=== PATIENT | female | born 1945 | race Hispanic/Latino ===

== ENCOUNTER 2022-09-17 09:20 | Observation (INO) | payer OTHER ==
[2022-09-16 14:45] VITALS: BP 153/70
[2022-09-16 14:47] LABS: INR 0.94 (0.85-1.15); PROTHROMBIN TIME 10.3 SEC (9.6-11.6)
[2022-09-16 14:48] LABS: PARTIAL THROMBOPLASTIN TIME 27.6 SEC (26.3-35.5)
[~2022-09-17] VITALS: Ht 154.9 cm; Wt 97.5 kg
[2022-09-17] VITALS (23 sets, daily range): BP systolic 103–129; BP diastolic 42–57
[~2022-09-17 09:20] MED LIST: AMLO-257 PO; CEFAZOLIN SODIUM 2 GM VIAL IVPB SCH; EMPA25TA PO; HYDR12.54 PO; INSU100V37 SQ; LACTATED RINGERS 1000ML 1,000 ML IV SCH; LOSA100T58 PO; PIOG30TA70 PO; ROSU10TA28 PO; SEMA1PEN3 SQ
[2022-09-17] MEDS ORDERED: 0.9%NACL 1000ML 1,000 ML IV ONE (09:36)
[2022-09-17] MEDS ORDERED: DEXAMETHASONE SOD PHOSPHATE 4 MG/ML 1ML VIAL ONE (14:22)
[2022-09-17] MEDS ORDERED: GLYCOPYRROLATE 1 MG/5 ML SYRINGE ONE (14:22)
[2022-09-17] MEDS ORDERED: LIDOCAINE PF 100MG/5ML (2%) SYRINGE 5ML ONE (14:22)
[2022-09-17] MEDS ORDERED: FENTANYL CITRATE PF 50 MCG/1 ML 2ML VIAL ONE ×2 (14:23→15:24)
[2022-09-17] MEDS ORDERED: ONDANSETRON 4MG INJ ONE (14:23)
[2022-09-17] MEDS ORDERED: PROPOFOL 10 MG/ML 20ML VIAL IV ONE (14:23)
[2022-09-17] MEDS ORDERED: MIDAZOLAM HCL 1 MG/ML 2ML VIAL ONE (14:23)
[2022-09-17] MEDS ORDERED: ROCURONIUM 10MG/1ML SYR 10 MG/ML ML ONE ×2 (14:25→15:24)
[2022-09-17] MEDS ORDERED: SCOPOLAMINE HYDROBROMIDE 1 EACH ADH..PATCH TD ONE (14:28)
[2022-09-17] MEDS ORDERED: EPHEDRINE SULFATE 50 MG/ML AMPULE ONE (14:43)
[2022-09-17] MEDS ORDERED: PHENYLEPHRINE HCL 10 MG/ML 1ML VIAL IV ONE (14:45)
[2022-09-17] MEDS ORDERED: POTASSIUM CHLORIDE 10% ELIXIR 20 MEQ/15 ML UDCUP PO PRN (15:00)
[2022-09-17] MEDS ORDERED: LIDOCAINE HCL-MPF 1% 2ML VIAL IV PRN (15:00)
[2022-09-17] MEDS ORDERED: HYDROCODONE/ACETAMINOPHEN 5/325 MG TAB PO PRN (15:00)
[2022-09-17] MEDS ORDERED: KCL 20 MEQ ERTAB PO PRN (15:00)
[2022-09-17] MEDS ORDERED: HYDROCODONE/ACETAMINOPHEN 10/325 MG TAB PO PRN (15:00)
[2022-09-17] MEDS ORDERED: MORPHINE 4 MG SYG IVP PRN (15:00)
[2022-09-17] MEDS ORDERED: POTASSIUM CHLORIDE 20MEQ/100ML 100 ML IV PRN (15:00)
[2022-09-17] MEDS ORDERED: ONDANSETRON 4MG INJ IVP PRN (15:00)
[2022-09-17] MEDS: ACETAMINOPHEN 1,000 MG/100 ML VIAL IV SCH ×2 (15:00→20:52)
[2022-09-17] MEDS ORDERED: CEFAZOLIN SODIUM 2 GM VIAL IVPB ONE (15:02)
[2022-09-17] MEDS: INSULIN HUMULIN R 100 UNIT/ML 3ML SQ SCH ×2 (16:30→21:00)
[2022-09-17] MEDS: TRAMADOL HCL 50 MG TABLET PO SCH ×2 (18:00→23:14)
[2022-09-17] MEDS: FAMOTIDINE 20MG TAB PO SCH (20:52)
[2022-09-17] MEDS: CEFAZOLIN SODIUM 2 GM VIAL IVP SCH (21:01)
[2022-09-17] MEDS: 0.9%NACL 1000ML 1,000 ML IV SCH ×2 (22:14→23:56)
[2022-09-18 04:00] VITALS: BP 109/47
[2022-09-18] MEDS: CEFAZOLIN SODIUM 2 GM VIAL IVP SCH (04:04)
[2022-09-18] MEDS: TRAMADOL HCL 50 MG TABLET PO SCH ×2 (04:52→13:02)
[2022-09-18 04:59] LABS: HEMATOCRIT 27.2 % (36-48); MEAN CORPUSCULAR HEMOGLOBIN 27.8 pg (27.0-33.0); MEAN CORPUSCULAR HGB CONC 31.3 g/dL (32.0-36.0); MEAN CORPUSCULAR VOLUME 88.9 fL (79-99); RED BLOOD CELL COUNT(AUTO) 3.06 MIL/uL (4.00-5.50); RED CELL DISTRIBUTION WIDTH 14.4 % (11.0-15.5); WHITE BLOOD COUNT (AUTO) 9.3 K/uL (4.8-10.8)
[2022-09-18 05:08] LABS: CREATININE 1.3 mg/dL (0.5-1.5); POTASSIUM 4.4 mmol/L (3.5-5.1)
[2022-09-18] MEDS: INSULIN HUMULIN R 100 UNIT/ML 3ML SQ SCH ×2 (05:41→11:00)
[2022-09-18 08:30] VITALS: BP 122/57
[2022-09-18] MEDS ORDERED: HYDROCHLOROTHIAZIDE 25 MG TABLET PO SCH (09:00)
[2022-09-18] MEDS ORDERED: LOSARTAN 100 MG TABLET PO SCH (09:00)
[2022-09-18] MEDS ORDERED: INSULIN DEGLUDEC 20 UNIT SQ SCH (09:00)
[2022-09-18] MEDS ORDERED: EMPAGLIFLOZIN 25MG TABLET PO SCH (09:00)
[2022-09-18] MEDS ORDERED: AMLODIPINE 5 MG TAB PO SCH (09:00)
[2022-09-18] MEDS ORDERED: POLYETHYLENE GLYCOL 3350 17 GM POWD.PACK PO SCH (09:00)
[2022-09-18] MEDS ORDERED: PIOGLITAZONE 30MG TAB PO SCH (09:00)
[2022-09-18] MEDS: FAMOTIDINE 20MG TAB PO SCH (09:11)
[2022-09-18] MEDS: 0.9%NACL 1000ML 1,000 ML IV SCH (11:00)
[2022-09-18 12:05] VITALS: BP 114/48
[2022-09-18] MEDS ORDERED: ASPIRIN 81 MG EC TAB PO SCH (21:00)
[2022-09-20] MEDS ORDERED: BISACODYL 10 MG SUPP.RECT RC PRN (15:00)
== END 2022-09-18 17:00 | disposition home or self-care (01) ==
LOC: DAH 09:20 → DAHIP 09:21 → 4BH 18:20
PROVIDERS: ADMIT Orthopaedic Surgery; ATTEND Orthopaedic Surgery
DX: S42.362A Displaced segmental fracture of shaft of humerus, left arm, initial encounter for closed fracture (principal); Z20.822 Contact with and (suspected) exposure to COVID-19; S42.352A Displaced comminuted fracture of shaft of humerus, left arm, initial encounter for closed fracture; I10 Essential (primary) hypertension; E11.9 Type 2 diabetes mellitus without complications; M25.512 Pain in left shoulder; E78.5 Hyperlipidemia, unspecified; X58.XXXA Exposure to other specified factors, initial encounter; Y93.89 Activity, other specified; Y92.89 Other specified places as the place of occurrence of the external cause; Y99.8 Other external cause status
CPT/HCPCS: 85610; 85730; 87426; 36415 ×2; 93005; 24516; 96365; 96375; 64415; 82948 ×5; 73060; 96376; 80048; 85027; 97161; 97039; 97530 ×2; A6260; J1100; C1713 ×4; G0378 ×22; A4663; A4565; J3010 ×2; J3490 ×2; J7030; J2001; J2250; J2704; J2405; J2370; J0690 ×4; A6223; G0168; A4649; A6255; A5120; A4215; A4223; A4222; A4221; J1815